=== PATIENT | female | born 1945 | race Caucasian/White ===

== ENCOUNTER 2021-05-10 16:27 | Inpatient (IN) | payer OTHER ==
[~2021-05-10] VITALS: Ht 149.9 cm; Wt 71.9 kg
--- NOTE | 2021-05-11 01:23 | NUR ---
05/10/211999 PATIENT ARRIVED TO UNIT VIA STRETCHER WITH ER STAFF AT BEDSIDE. PATIENT WAS ABLE TO AMBULATE UNDER HER OWN POWER TO BED IN ROOM 219-A. PT VITAL SIGNS UPON ADMISSIN WERE BP 128/76 HR 81 RESP 19 96%RA AND TEMP 97.8. PATIENT PRESENTS WITH ANXIETY AND MILD AGITATION. SHE IS HYPERVERBAL AND IS HAVING DIFFICULTY CONCENTRATING ON TASK AT HAND. STATES THAT SHE HAS BEEN WAITING TO GET TO HER ROOM SINCE FRIDAY. PATIENT IS ORIENTED TO PERSON, AND TIME. SHE STATES THAT SHE KNOWS SHE IS IN A HOSPITAL BUT DOES NOT KNOW THE NAME AT THIS TIME. DURING SKIN ASSESSMENT NOTED PATIENT HAS VERY MILD REDNESS IN THE ABDOMINAL FOLDS AND UNDER THE BREAST TISSUE. APPEARS TO BE HEALING AND PATIENT STATES THAT SHE HAS BEEN TAKING TOPICAL MEDICATION FOR IT. PATIENT DOES HAVE SOME MILD DEFORMITY OF THE TOES ON HER FEET WELL SOME DRY AREAS WITH WHAT LOOKS TO BE SMALL BUNIONS ON BILATERAL FEET. NOTIFED PATIENTS DPOA OF ARRIVAL AND RECEIVED VERBAL CONSENT TO TREAT. CONSENT WAS OBTAINED 05/10/21 AT 23:50. RECEIVED FROM DAUGHTER AND DPOA AUGUSTIN LIRA.
[2021-05-11 08:44] LABS: CHOLESTEROL 187 mg/dL (<200); HDL CHOLESTEROL 82 mg/dL (>40); LDL CHOLESTEROL 85 mg/dL (<100); TC:HDL 2.3 Ratio (Not establshd); TRIGLYCERIDE 101 mg/dL (<150); VLDL 20 mg/dL (<40)
[2021-05-11 09:21] VITALS: BP 148/86
--- NOTE | 2021-05-11 15:51 | NUR ---
LABILE MOOD NOTED SINCE START OF SHIF-FOR INITIAL ASSESSMENT WAS SITTING IN DAYROOM WATCHING TV WITHFEMALE PEER-REFUSED AM MEDICATIONS WHEN OFFERED AND BEGAN TO YELL AT NURSING STAFF INSISTING WE WERE GIVING HER"THE WRONG MEDICINE""I HAVEN'T TAKEN THAT IN 30 YEARS"CONVERSATION IS DISORGANIZED,CIRCUMSTANTIAL MULTIPLE PARANOID STATEMENTS ABOUT BEING GIVEN THE WRONG MEDICATION AND SSUEING THE HOSPITAL. DENIES PAIN. ORIENTED X4. DEMANDING THAT VARIOUS FOOD ITEMS BE ORDERED AND BROUGHT TO HER ROOM AND A PHONE AND TV BE INSTALLED IN HER ROOM.
[2021-05-11 19:32] VITALS: BP 117/92
[2021-05-11 22:18] VITALS: BP 117/92
--- NOTE | 2021-05-12 03:31 | NUR ---
Pt is alert/oriented to person, disoriented to time/place. Gets days mixed up and believes she is at home on occasions. Pt will accept when you tell her she is in the hospital. She wanted something for sleep so I called the dr. Lisa was ordered she did not sleep after the first dose but she did not want a second dose. She is attached to her magazines and her book and dining tray. She was offered several times throughout the shift to lay down in her room but she refused opting to stay in the day room. Lungs are clear, HRR, Abd soft nt. feels she hasn't voided but the PCT informed that she has voided and she does not have s/s of bladder fullness. Pt continues to flight of ideas, she takes her medications after explanation of the medications and what they are for. Denies SI/HI/AH/VH. will continue to monitor.
[2021-05-12 07:47] VITALS: BP 117/92
[2021-05-12 09:08] VITALS: BP 137/113
--- NOTE | 2021-05-12 09:27 | NUR ---
0917 ASSUMED CARE OF PT FROM OVERNIGHT NURSE. PT SITTING IN DINING ROOM ATTEMPTING TO ORDER BREAKFAST. PT ASSESSMENT COMPLETED. PT ALERT TIMES 2. PT STATING THAT SHE NEEDS TO ORDER BREAKFAST FOR ALL THE PEOPLE ADMITTED. PT REDIRECTED BY TECH. PT AMBULATES WITHOUT ASSIST. PT LUNGS CLEAR. PT TOOK MEDS WHOLE WITHOUT ISSUE. PT ABDOMEN SOFT. PT BOWEL SOUNDS PRESENT. PT DEMANDING TO SEE THE DOCTOR AL. PT DENIES SI/HI/AH/VH. PT REFUSED TO GO TO GROUP THERAPY STATING THAT SHE IS NOT ABLE TO GET UP BECAUSE HER SHOULDERS WERE HURTING. THIS NURSE OFFERED PT PAIN MEDICATION. PT REFUSED PAIN MEDICATION AT THIS TIME. PT CONTINUES TO TALK AT RAPID PACE AND BEING NOT ABLE TO BE REDIRECTED AT TIMES. WILL CONT TO MONITOR PT FOR BEHAVIORS AND SAFETY.
--- NOTE | 2021-05-12 12:33 | NUR ---
1224 PT IS INTRUDING IN OTHER PEERS PERSONAL SPACE. PT TOUCHING ONE OF THE PT'S FOOD AND WAS REDIRECTED BY THIS NURSE STOP TOUCHING OTHER PEOPLE'S LUNCH FOOD. PT STATED THAT SHE WAS JUST TRYING TO BE HELPFUL. PT THEN WALKED TO ANOTHER PT'S LUNCH TRAY AND STARTED TOUCHING ITEMS AGAIN. PT WAS AGAIN REDIRECTED AND PT WENT AND SAT DOWN AT A TABLE. WILL CONT TO MONITOR PT FOR BEHAVIORS.
[2021-05-12 19:47] VITALS: BP 134/89
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
--- NOTE | 2021-05-12 22:42 | NUR ---
PATIENT SITS IN THE COMMON AREA IN RECLINER. SHE IS CALM AND RELAXED BUT CONTINUES TO BE HYPERVERBAL AND HAVING A CONTINUANCE OF GETACHEW. PATIENT IS SLIGHTLY FORGETFUL BUT SHE IS ALERT AND ORIENTED TO PERSON, TIME, AND KNOWS THAT SHE IS IN THE HOSPITAL. PATIENT HAD DIFFICULTY CONCENTRATING ON ONE TASK. SHE HAS CLAIMED THAT SHE HAS NOT URINATED IN THREE DAYS ALTHOUGH SHE HAS BEEN WITNESSED URINATING. SHE STATES THAT SHE NEEDS TO HAVE 2 IV'S AND AN MRI OF HER KIDNEYS. SHE REQUESTED THIS EVENING TO HAVE THE NUMBER TO THE NON EMERGENT POLICE SHE SAYS THAT SHE HAS BEEN WORKING ON THEM ON A CASE. ONE OF THE MALE PATIENTS "WR" HAS BEEN CONFUSING HER HIS AND ATTEMPTS TO BE EFFECTIONATE WITH HER. PATIENT VSS AND SHE DENIES ANY ADDITIONAL NEEDS OTHER THAN TYLENOL FOR A MILD HEADACHE.
[2021-05-13 09:18] VITALS: BP 141/94
[2021-05-13 09:51] VITALS: BP 141/94
--- NOTE | 2021-05-13 11:49 | NUR ---
1145 RESUMMED CARE FROM OVERNIGHT SHIFT THIS AM, PATIENT IN DAY ROOM VERY HYPERVERBAL. PATIENT WAS GOING AROUND TAKEN OTHER PATIENTS ORDERS FOR LUNCH; I TOLD PATIENT SHE CAN NOT ORDER THE SAME MENU FOR OTHER PATIENTS. I TOLD PATIENT TO FOCUS ON HER TREATMENT. PATIENT IS VERY MANIC AT TIMES DEMANDING THINGS AND TRYING TO TELL STAFF HOW TO DO THEIR JOB. PATIENT ORIENTED TIMES 4 DENIES SI/HI/AH/VH AT PRESENT. PATIENT DENIES SI/HI/AH/VH AT PRESENT PATIENTS ABDOMEN SOFT BOWEL SOUNDS PRESENT. PATIENTS LUNGS CLEAR I GAVE PATIENT A SHOWER THIS AM. PATIENT VERY FIXATED ON GETTING SURGERY AND STATES SHE FEELS THE DOCTORS ARE NOT MEDICATING HER PROPERLY. PATIENT TRIES VERY HARD TO DEFEND SOME OF THE PATIENTS AND FEELS SHE NEEDS TO HELP THEM. WHEN REDIRECTING PATIENT SHE LIKES TO ARGUE AND NOT LISTEN TO WHY WE HAVE RULES. WILL CONTINUE TO MONITOR PATIENT FOR SSAFETY AND BEHAVIORS.
--- NOTE | 2021-05-13 16:53 | NUR ---
SW met with pt. who had been verbally aggressive towards staff. Pt. was upset that she had been given a shot, stating she is not supposed to receive any. Pt. wants to get an MRI and expressed that if she didn't get one, she would . Pt. wants to meet with this SW tomorrow for 15 minutes. SW explained that there is a different SW tomorrow. The SW talked to the importance of being kind to the staff and other pts on the unit. The pt. eventually told this SW that she could see herself liking the SW.
[2021-05-13 19:30] VITALS: BP 103/43
[2021-05-13 20:15] VITALS: BP 138/88
--- NOTE | 2021-05-14 03:09 | NUR ---
05-13-21 CARE TRANSFERRED 1899 OBSERVED PT SITTING AT TABLE WITH OTHERS SOCIAL INTERACTIVE. LATER PT AAOX2, VSS, RR EVEN AND NONLABORED ON RA, PT DENIES SI/HI AND PAIN. PT PRESENTS HYPERVERBAL AND INTRUSIVE WITH OTHERS, CAUSING IRRITATION WITH OTHER PEERS, PT HAS HAD MOMENTS OF GETACHEW. LATER PT REPORTED HAVING PAIN IN HER SHOULDERS AND SCORED 6 ON 0-10 SCALE. DURING REASSESSMENT OF PAIN PT RESTING IN RECLINER IN DAY ROOM WITH EYES CLOSED. PT WILL CONTINUE TO BE MONITOR PER [facility].
--- NOTE | 2021-05-14 08:34 | NUR ---
Assessed d/t new admit to [facility]. Pt admit d/t manic episode. Hx bipolar, anxiety, delusions and paranoia. No hx weight loss noted and good intakes 100% on regular diet since admit. Meds include statin, ASA, MVI, levothyroxine, seroquel. BMI 33, obese class I. Labs reviewed. D/t good dietary intakes, place at low nutrition risk at this time.
[2021-05-14 09:40] VITALS: BP 149/122
--- NOTE | 2021-05-14 10:40 | NUR ---
1040 assumed care from overnight nurse. pt sitting in dining room at beginning of shift. pt hyperverbal and needing to be redirected multiple times. pt invading personal space of a few of her peers. pt lungs clear. pt denies current pain, stated that she has had chronic pain in her shoulders during her stay. pt refused pain medications at this time. pt abdomen soft. pt bowel sounds present. pt denies SI/HI/AH/VH. pt stated that she is going to discharge today, no orders on chart for discharge at this time. pt started on new medication of Tamsulsin. pt educated on some side effects, verbalized understanding. will cont to monitor pt for behaviors and safety.
--- NOTE | 2021-05-14 11:59 | NUR ---
MAUREEN and Dr. Garcia completed a family meeting via phone with April. Dr. Garcia explained pt is still manic; he will try to get her jules down so he can ask if she wants to assign a solid healthcare dpoa. At this time he cannot say for certain if pt is suffering from a manic episode or if she now has a dementia. He did tell April that he believes she will need to stay in the hospital for the rest of the week. April said she went to the pt's apartment and discovered she has not been taking her meds for a long time; at least several weeks. SW team will continue to follow pt during her stay on this unit.
--- NOTE | 2021-05-14 15:10 | NUR ---
1430 pt sitting in dining room. pt refused to take oral [id number] 175 mg. pt begin yelling and getting loud. pt asked again if she would take her medication by mouth, pt refused. pt stated that she does not take this much medication at home. this nurse confirmed that pt would not take medication and another nurse and social science analyst intervened for assistance. pt started to punch at this nurse, the decision was then to given the IM Zyprexa 5 mg. [facility] contacted for assistance with IM. pt became even more upset and was asked to go to her room to deescalate. pt was escorted to her room and IM was given. pt is currently lying down in her room with lights out for comfort. will cont to monitor pt for behaviors and safety.
[2021-05-14 19:00] VITALS: BP 153/91
--- NOTE | 2021-05-15 08:15 | NUR ---
At 0800 pt was heard in dining room giving orders to staff. SAP BASIS ADMINISTRATOR approached pt and requested that she lower her voice and communicate her needs in a respectful manner. Pt immediately escalated further, using profanity, name calling, and threatening staff; "I've got my head of transport logistics coming at 11 o'clock and I'm taking names of all of you pigs!" "Get me some damn coffee, slaves!" Of note, pt had urinated in dayroom earlier this morning per nursing staff. When pt's rico chair was moved to relocate her away from milieu, a large amount of urine tracked the floor. When pt was asked why she has not ambulated to the bathroom as she is capable of doing so, she smiled and stated, "you all can clean it up!" Rico chair was moved to back of dayroom and urine was cleaned off of the floor. Pt has not gone to her room to change and is presently wearing soiled gown without any regard to hygiene.
[2021-05-15 09:53] VITALS: BP 132/73
--- NOTE | 2021-05-15 12:38 | NUR ---
Alert and orientated X4. Initially refused assessment and then hit BRUSH HAND when she was trying to redirect pt out of refrigerator. Delusional, stating that that her psychiatrist and banking attorney will pick her up at 1100 and that she is leaving at that time. Very demanding and fussy, kicking and attempting to hit. 15 mg Geodon given IM this AM for agitation and combativeness. Denies SI/HI. Breath sounds clear. Reg HR auscultated. Color pink with brisk capillary refill and palpable peripheral pulses. Incontinent of urine x 2 this AM--appears behavioral. Active bowel sounds over large, rounded abdomen. Multiple lesions over body of differing sizes and colors from doss to dark brown. Circular 1-2 cm in diameter. Ambulates with regular, steady gait. Consented to assessment during shower. Currently sitting in room without s/o distress.
[2021-05-15 19:37] VITALS: BP 88/45
[2021-05-15 20:20] VITALS: BP 168/74
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
[2021-05-16 08:49] VITALS: BP 175/89
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
[2021-05-16 19:13] VITALS: BP 128/78
[2021-05-16 19:15] VITALS: BP 128/78
--- NOTE | 2021-05-16 21:56 | NUR ---
Assumed care on 05/16/21 @ 1900, Impulsive, difficult to redirect and bossy. Seroquel crushed in pudding d/t patient cheeking and spitting out seroquel for day nurse. Hyperverbal and manic with flight of ideas. Accepted nystatin cream on waist fold. Reports BM today (05/16). Will continue to monitor for safety and comfort as per unit protocol.
[2021-05-17 08:00] VITALS: BP 149/100
--- NOTE | 2021-05-17 10:05 | NUR ---
Hyperverbal. Alert and orientated X4. Noncompliant with meds. Took 100 mg quetiapine and threw rest of meds in bucket. 10 mg Olanzapine given IM per order. Attempts to kick when not happy with whatever is requested of her. Very delusional, using profanity and calling RN "pig", "useless" and questioning her abilities. Did attend groups this AM. Breath sounds clear. Reg HR auscultated. Color pink with brisk capillary refill and palpable peripheral pulses. Urinated large amt per toilet but then states she has not urinated in 3 days. Active bowel sounds over soft, rounded abdomen. States she had BM 2 days ago. Multiple circular moles over body. Currently demanding shower/bath at front end java developer.
--- NOTE | 2021-05-17 13:38 | NUR ---
RT Progress Note- Elizabeth has had difficulty maintaining consistent participation in recreation therapy groups throughout the first week of her admission, d/t manic behaviors. Elizabeth often makes demands of staff and other patients, hyperfocuses on tasks that do not pertain to group such as showering or obtaining an MRI, and is interuptive to other patient's contributions to group. She does not respond to redirection well, but it is noted that if she is spoken to in a low voice, with clear and precise answers she is more receptive. Elizabeth does enjoy music and has appeared calmer during these groups. WHOLESALE AGRONOMIST will continue to work with pt and encourage progress towards goals.
--- NOTE | 2021-05-17 22:20 | NUR ---
Assumed care on 05/17/21 @ 1900, loud and verbally abusive to staff and peers. Refused p.o. medications. After several attempts patient accepted Seroquel 225mg, however refused Depakote 750mg, calcium and Lipitor. Daughter had offered to speak to her mom and encourage the taking of medication, which we tried, but was not productive as the patient became verbally and emotionally abusive with her daughter. Patient repeats multiple times that she cannot "pee" however urinates freely in large quantities in both the bedroom and the bathroom.
[2021-05-18 09:14] VITALS: BP 99/59
--- NOTE | 2021-05-18 14:04 | NUR ---
Assumed pt care at 0700. Pt in her room awake. Alert and oriented x4. Assessments completed, vss. Denies si/hi, no c/o pain at this time. manic, hyperverbal, rude and intrusive to staffs and other pts. argues and refuses meds. Took meds whole, no difficulty, noted. Ambulates with a steady gait. pt wanders unit hallways. TOilets self, makes needs known to staff. Pt was seen shoving pencil down her throat. Pt was redirected, pencil was taking away from pt. Pt was agitated and intrusive towards staff and other pt. PT WAS redirected. Enrollment Services Dean assisted pt back to her room to relax. At this time pt is in the day room. WILL continue to monitor.
[2021-05-18 19:36] VITALS: BP 126/71
--- NOTE | 2021-05-18 21:05 | NUR ---
Assumed patient care at approx 1900. Patient hyperverbal, tangential, delusional. Makes many untrue comments such as "I slept all night from there to there", when patient did not sleep lastnight until just before day shift staff came on the unit. Patient refusing physical assessment and constantly changes the subject when being asked assessment questions. Patient intrusive with other patients. When a new peer came on the unit and was on the phone with his , patient began trying to talk to the patient's over the phone. Patient also threatened to "push the red emergency button if you don't check my blood pressure", though patient was asked multiple times to have a seat in the day room in order to have her blood pressure taken. She made threats concerning pushing the "red button" when any staff would attempt to redirect her in any way. Patient very resistant to taking medications and had to be watched carefully to ensure she was taking the meds. She did eventually take medications. Patient given PRN cyclobenzaprine due to bilateral shoulder muscle aches. Patient currently lying in bed in room.
[2021-05-19 09:20] VITALS: BP 144/86
--- NOTE | 2021-05-19 13:06 | NUR ---
Assumed pt care at 0700. Pt was in day room hyperverbal. ALERT AND ORIENTED X4. Assessments completed, vss. Denies si/hi, c/o pain tylenol administered as ordered. Pt is uncooperative, aggressive and combative with care. PT was manic. Insulting other pts and staff. Took meds whole, no difficulty noted. Ambulates with a steady gait. Pt was disrupting 9am groups. all effort to redirect pt was unsuccessful. Security was called. 0909 Haldol PRN 5mg IM was administered to pt for aggresive behaviors. Pt was assisted to her room to relax, pt refused to stay in her room. AT this time pt is in HER room AWAKE. WILL CONTINUE TO MONITOR.
[2021-05-19 19:50] VITALS: BP 153/85
[2021-05-19 20:10] VITALS: BP 153/85
--- NOTE | 2021-05-19 23:58 | NUR ---
[facility] AT 1900. SHE IS ALAERT AND ORIENTED. LUNGS ARE CLEAR, BS ACTIVE X4 QUADS. SHE DENIES PAINS AND ABLE TO VERBALIZE HER NEEDS. SHE TOOK HER MEDS WHOLE AND AND DENIES SI/ AVH/ HI. SHE IS UPSET WITH THE NURSE FOR KEEPING HER BOOK. ABD IS SOFT AND NONE TENDER. SHE IS CONTINIET OF BOWEL AND BLADDER. BED IS LOW, LOCKED AND ALARMED. SHE HAS A NONE SKID SOCKS ON. MONITOR AND CONTINUE CARE
[2021-05-20 09:05] VITALS: BP 114/97
[2021-05-20 09:56] VITALS: BP 114/97
[2021-05-20 10:14] VITALS: BP 114/97
--- NOTE | 2021-05-20 11:52 | NUR ---
1150 RESUMMED CARE FROM OVERNIGHT SHIFT THIS AM, PATIENT IN DAY ROOM YELLING ABOUT HER BREAKFAST. PATIENT TOOK SOME OF HER MEDICATION BUT REFUSED THE HALDOL 5 MG PO. I GAVE PATIENT IM BACKUP PF HALDOL 5 MG PATIENT ALERT ORIENTED TIMES 4. PATIENT HAS BEEN DISRUPTED MOST OF THE MORNING SHE WAS GIVEN GEODON 20 MG IM FOR AGGRESSIVE BEHAVIORS PATIENT KICKED NURSE AND SIEVE GRADER TENDER IN THE LEG. PATIENT IS VERY MANIC AND HYPERVERBAL PATIENTS LUNGS CLEAR PATIENTS ABDOMEN SOFT BOWEL SOUNDS PRESENT. WILL CONTINUE TO MONITOR PATIENT FOR SAFETY AND BEHAVIORS.
[2021-05-20 20:48] VITALS: BP 160/71
[2021-05-20 20:52] VITALS: BP 119/98
--- NOTE | 2021-05-20 21:02 | NUR ---
Resumed patient care at 1900. Patient awake and resistant with initial vitals. This mortgage or loan underwriter took vitals prior to medication pass. Patient sedated at that time. Vitals at 160/71 bp, 113rr, initially would not read spO2 as patient's fingers were cool, rr 16, finally sp02 read 78%. Sat HOB up and 2L nasal canula, sats came up to 92%, bp 119/98. Patient now at 95% on room air, able to state her name and that her "breathing was low", disoriented to place and date. Speaking nonsense. Holding HS meds. Notified hospitalist BRITNEY Knott, who said to check vitals again in 2 hours.
[2021-05-20 23:05] VITALS: BP 124/83
[2021-05-21 09:33] VITALS: BP 147/82
--- NOTE | 2021-05-21 11:06 | NUR ---
Followup: remains on [facility] unit, eating 50-100% of regular diet. Wts are stable. Low nutrition risk
--- NOTE | 2021-05-21 11:51 | NUR ---
MAUREEN and Dr. Pond participated in a meeting via phone with Yamilet. Medications and Pt's behaviors were discussed. It recommended the PT was in need of a higher level of care. Pt is currently in an [place] but its recommended that Pt move into an assisted living with memory care. Pt sees Dr. Huber for outpt psychiatry. Family meet set for 05/25/2021 @ 5132
--- NOTE | 2021-05-21 16:48 | NUR ---
Assumed pt care at 0700. pt was in the room awake. ALERT AND ORIENTED X4. Assessments completed, vss. Denies si/hi, C/O PAIN. tylenol administered as ordered. Took meds whole, no difficulty noted. Ambulates with a steady gait. No sign of acute distress noted upon assessments. Pt was irritable, combative with staff. pt was redirected and assisted back to her room. Pt refused shower and insisted she would want a shower at 2000 tonight. Pt stuffed her bathroom with paper towel and bowels M. Pt NOTIFIED staff after stuffING her bathroom. Bathroom was cleaned up. Pt makes needs known to staff. At this time pt is in the day room screaming. Will continue to monitor.
--- NOTE | 2021-05-21 18:54 | NUR ---
LOUD HYPERVERBAL-WALKED BEHIND NURSES STATION AND ATTEMPTED TO GRAB SEVERAL ITEMS OFF THE DESK INSISTING THEY WERE HERS -ARGUMENTATIVE AND DELUSIONAL STATING SHE IS THE AIR ROUTE CONTROLLER OF "ALL OF THIS"-RAPID,LOUD SPEECH,APPEARS UNABLE TO PROCESS VERBAL INSTRUCTIONS PROVIDED -CIRCUMSTANTIAL. THREATNING TO JUDAH EVERYONE AND TOLD FLAG DECORATOR SHE WAS "GOING TO BE WAITING FOR YOU" AND "GET YOU WHEN YOU DON'T EXPECT IT" GIVEN OPTION TO GO TO ROOM OR TAKE PO MEDICATIONS TO MANAGE ABOVE NOTED SYMPTOMS, REFUSES TO COMPLY AND WENT TO DAYROOM IN FRONT OF PEERS AND BEGAN TO SHOUT "WE NEED TO UNITE AND BAND TOGETHER AND OVERTHROW THESE DICTATORS" INTRUSIVE AND INSULTING WITH FEMALE PEER WHO ATEMPTED TO REDIRECT HER STATING "OH SHUT THE HELL UP YOUR JUST A UGLY OLD WOMAN AND I BET YOU WILL SOON" SECURITY CONTACTED AND HALDOL 5 MG GIVEN IM IN LEFT DELTOID. SECURITY REMAINED IN ROOM X 30 MINUTES PT RANTED AT THEM AND STATES "I WILL PUT ON A SHOW FOR YOU IF YOU SIT AND TALK WITH ME 1;1-VERY HYPERSEXUAL-DR SALMERON CONTACTED AT 1745 AND ORDER RECEIVED FOR SECLUSION X 30 MINUTES-POUNDING ON DOOR TO SECLUSION REFUSING TO SIT ON MATTRESS. DOOR UNLOCKED AT 1815 PER ORDER-PT PROCEDED TO URINATE ON FLOOR OF SECLUSION BEFORE COMING OUT AND STATING "I PEED ON THE FLOOR SO YOU NEED TO CLEAN IT UP '
[2021-05-21 20:17] VITALS: BP 136/88
--- NOTE | 2021-05-22 04:36 | NUR ---
PATIENT HAS POOR INSIGHT. SHE CONTINUES TO BE HYPERVERBAL AND HAS DIFFICULTY LISTENING TO INSTRUCTIONS. SHE CONTINUES TO STATE THAT SHE HAS NOT SEEN A DR AND DOES NOT HAVE A MUD ANALYSIS WELL LOGGING OPERATOR. PATIENT IS IRRITABLE AND REFUSING MEDICATIONS. WHEN SHE DOES NOT GET WHAT SHE WANTS SHE URINATES IN THE FLOOR. SHE HAS BEEN DISRESPECTFUL TO HER PEERS. SOME PEERS REFUSE TO COME IN THE COMMON ROOM WHEN SHE IS IN THERE. NOTOFIED THE PHYSICIAN FOR AGITATION AND IRRITABILITY EXHIBITED BY PATIENT. SHE ALLOWED NURSE TO GIVE THE INJECTION IN HER R ARM. PATIENT REQUESTS TO SLEEP IN THE ACTIVITY ROOM SHE STATES THAT HER BED IS NOT COMFORTABLE NOW.
[2021-05-22 09:31] VITALS: BP 132/81
--- NOTE | 2021-05-22 16:28 | NUR ---
0700 assumed pt care. Pt was in her room awake. Alert and oriented x4. IRRITABLE,combative, aggressive with care. Assessments completed, vss. Denies si/hi. Denies pain at this time. Took meds whole, no difficulty noted, Ambulates with a steady gait. Pt requires extra encouragement to take her meds. Pt refused AM meds. Pt was agitated and was disrupting groups, and other pt. PRN 7.5mg Haldol was administered. Pt continued to be aggressive towards staffs and other. pt constantly takes off her pants and comes out of her room naked. Refusing care and redirection. Pt stuffed paper towels in her bathroom. AT this time pt is in the day room watching TV. will continue to monitor.
[2021-05-22 19:19] VITALS: BP 125/67
--- NOTE | 2021-05-22 19:49 | NUR ---
Assumed care on 05/22/21 @ 1900, in room taking her clothes off. Cooperated with assessment, HRRR, Lungs CTA ABD N takes self to toilet, however often urinates on the floor, which she confided to another patient she does on purpose so the staff will have to clean it up. Redirected into room and asked to redress herself. Will continue to monitor q12 minutes for patient safety and comfort.
[2021-05-22 19:50] VITALS: BP 131/56
[2021-05-22 20:45] VITALS: BP 146/94
[2021-05-22 21:45] VITALS: BP 131/56
--- NOTE | 2021-05-22 22:37 | NUR ---
At 2034 patient was sitting on floor by bathroom. She was sitting on her bottom. surgery manager had left patient in her bed with alarm on about 5 minutes earlier and brought new supplies to her bathroom. Patient states she fell down on bottom. She is alert x3 and states she did not hit head. Assessment and vitals done. She has no new injuries or markings on body. She has chronic shoulder pain and states she has no new pain. Neuro checks wnl. Strong physical sciences instructor with hands bilaterally. Pupils 3mm equal and reactive to light. Denies headache. No facial drooping. ROM wnl for patient. She is able to stand and walk and raise arms up to middle level as before. She does show old bruising on bilateral upper arms that are purple/yellow in color. Patient was cleaned up and placed in bed in comfortable position. She was given ice water to drink and sat it at bedside. Patient slept and awoke an hour later and was helped to the [facility] where she did void. She continues to be argumentative and fussing about she does not need to be here and the doctor should of left her meds alone. She states she was fine before she came in. Bed is in low position. Bed alarm is on. Siderails x3 up for safety. Daughter April was notified of noninjury fall. Dr Hansen also notified of noninjury fall. No new orders. Criminal Justice Social Worker notified also. Continuing to monitor.
--- NOTE | 2021-05-22 23:19 | NUR ---
Went to try and give patient hs meds after her nurse, Ketan didn't have any luck. Patient was argumentative and refused meds after much trying. told her that she would be getting an injection of haldol if she did not take the pills. She states she's used to getting shots at night. Haldol 7.5mg im was given in patients left deltoid. No manual hold was needed. Patient requesting seroquel. States doctor won't give it to her. She states haldol does not work for her. Pt left resting in bed with bed in low position and bed alarm on. bed rails up times 3.
[2021-05-23 09:27] VITALS: BP 116/52
--- NOTE | 2021-05-23 10:51 | NUR ---
Spoke to daughter along with Dr. Garcia. Discussed the possibility of medication changes with her mother and daughter was in agreement. is going to change meds to attempt to soften her erratic and frightening (to other patients) behavior. Daughter is activley looking at placement - has reached out to both [facility] and [facility]. Understands that until behavioral improves it is best not to send any information from her current inpatient stay. Hopefully with med change we will begin to see some inprovement. Daughter had no further questions.
--- NOTE | 2021-05-23 12:37 | EKG ---
[address] [address] ELECTROCARDIOGRAM REPORT Name: PASCUAL COTE Room #: 519A-A ADM IN M.R.#: [id number] Admission: 05/10/21 Attend Phys: Meño Garcia DO Discharge: Date of : 41 Report #: [id number] [facility] Test Date: 2021-05-23 Test Time: 11:09:35 Pat Name: PASCUAL COTE Department: Room: [facility] Gender: F Limo Driver: ANAMARIA : 1945 Requested By: Meño Garcia Order Number: [id number] MD: Bryant Altamirano Measurements Intervals [place] Rate: 86 P: 64 ID: [id number] QRS: -17 QRSD: 105 T: 43 QT: 416 QTc: 498 Interpretive Statements Sinus rhythm Borderline left axis deviation Borderline T abnormalities, anterior leads Borderline prolonged QT interval No previous ECG available for comparison Electronically Signed On 05-23-2021 12:37:06 CDT by Bryant Altamirano [email or web address] <ELECTRONICALLY SIGNED> By: Bryant Altamirano MD, [facility] 05/23/21 1237 D: 08/1108 08 Bryant Altamirano MD, FACC /EPI
--- NOTE | 2021-05-23 13:22 | NUR ---
Assumed pt care at 0700. pt was in the day room. Alert and oriented x4. Assessments completed, vss. Denies si/hi, c/o pain tylenol administered as ordered. Took meds whole, no difficulty noted. AMbulates with a steady gait. Pt is resistive, and aggressive with care. AT 1240 Threaten another pt of hitting him on his head and Killing him afterwards. Pt was redirected. Temperature Regulator took pt back to her room. DR Garcia was notified of pt behavior. Pt urinated on the floor of her room. Pt cooperated with her EKG with a lot of resistance. AT this time pt is her room. WILL CONTINUE TO MONITOR.
[2021-05-23 19:36] VITALS: BP 113/72
[2021-05-23 22:06] LABS: URINE BILIRUBIN NEGATIVE (Negative); URINE BLOOD NEGATIVE (Negative); URINE CLARITY CLEAR; URINE COLOR YELLOW; URINE GLUCOSE-RANDOM* NEGATIVE (Negative); URINE KETONES NEGATIVE (Negative); URINE NITRITE-REFLEX NEGATIVE (Negative); URINE PROTEIN (DIPSTICK) NEGATIVE (Negative); URINE SPECIFIC GRAVITY <= 1.005 (1.005-1.035); URINE UROBILINOGEN 0.2 E.U./dl (0.2-1.0)
[2021-05-23 22:16] LABS: URINE LEUKOCYTES-REFLEX 1+ (Negative)
[2021-05-23 22:17] LABS: MUCUS None Seen strn/LPF (None Seen); SQUAMOUS None Seen /LPF (0-3)
[2021-05-23 22:18] LABS: BACTERIA-REFLEX None Seen /HPF (None Seen); CASTS None Seen /LPF (None Seen); CRYSTALS None Seen /LPF (None Seen); URINE RBC 1-2 Rare /HPF (NONE SEEN); URINE WBC-REFLEX 0-5 Rare /HPF (0-5)
[2021-05-24 00:37] VITALS: BP 113/72
--- NOTE | 2021-05-24 01:18 | NUR ---
0015 RESUMMED CARE FROM DAY SHIFT THIS EVENING PATIENT AT NURSES STATION TALKING TO STAFF. PATIENT ALERT ORIENTED TIMES 3 PATIENT IS HYPERVERBAL AND MANIC. PATIENT CONSTANTLY STATING SHE NEEDS A URINE TEST BECAUSES SHE URINATES A LOT. PATIENT DRINKS A LOT OF WATER DR AGOSTO ORDERED UA ON PATIENT. PATIENT DENIES SI/HI/AH/VH AT PRESENT. PATIENTS ABDOMEN SOFT BOWEL SOUNDS PRESENT PATIENTS LUNGS CLEAR. PATIENT VERY INTRUSIVE AT NURSES STATION TRYING TO READ PAPERS ON DESK. THIS EVENING PATIENT NOT FOLLOWING DIRECTIONS TRYING TO HIT STAFF WHEN SHE CANNOT HAVE HER WAY. PATIENT GOT THORAZINE 37.5 MG IM TO HELP PATIENT SETTLE DOWN. WILL CONTINUE TO MONITOR PATIENT FOR SAFETY AND BEHAVIORS.
[2021-05-24 09:22] VITALS: BP 129/87
--- NOTE | 2021-05-24 13:19 | NUR ---
Care assumed of patient at 0715: Patient alert and oriented x3, disoriented to situation. Hyperverbal, intrusive and irritable at times. No aggressive behaviors observed thus far this shift. Patient had 2 episodes of pouring water on her bed and urinating on the floor. However, patient has been able to use the bathroom appropriately and remain continent, which is an improvement. Patient received a shower this AM. Patient has periods of becoming obsessive regarding one topic and needs re-direction. Appears easier to re-direct since starting new medication yesterday. Patient tried to spit medication out this AM and required reminders on needing to take medication. Patient was then compliant. Mouth checked after taking medication to ensure it was swallowed. Denies SI/HI/AH/VH. No delusional or paranoia behaviors observed.
--- NOTE | 2021-05-24 14:21 | NUR ---
RT Progress Note- Elizabeth has shown very variable participation in recreation therapy groups throughout this week review period. Elizabeth continues to be hyperverbal and disruptive in the milieu. During groups she is intrusive and interrupts other patients and staff. This has caused her to be escorted out of group as it is very frustrating to other patients. 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 RT team will continue to engage Elizabeth in the milieu and recreation therapy groups while working towards meeting her goals of impulse control.
[2021-05-24 19:42] VITALS: BP 136/65
--- NOTE | 2021-05-25 06:25 | NUR ---
Assumed pt's care at 1600. ALert and oriented. Pt was initially cooperative with care. Took meds as ordered. Had several episodes of bladder incontinence. Voidning on bed multiple times. Pt was agitated and aggressive with nursing which required pt to get a onetime dose of Haldol IM. Pt finally was able to get some sleep. But went back and forth room and dayroom. Nursing to continue to monitor.
[2021-05-25 09:09] VITALS: BP 137/79
[2021-05-25 11:46] VITALS: BP 137/79
--- NOTE | 2021-05-25 12:37 | NUR ---
Telephonic family meeting with Yamilet (patient's daughter). Dr. Garcia has completed [place] form Psychiatric Examination and Evaluation and this residential mortgage underwriter has sent it on to daughter's attorney recruiter - [employer] to proceed with potential guardianship. Daughter is considering both [facility] and [facility] as possible placement for patient. Dr. Garcia reviewed both medications and behaviors with daughter. Daughter voices understanding of behaviors involving innapropriate elimination and the refusal to wear underwear. Daughter agrees that we will hold off sending any referral packets until mid week in hopes that behavior changes. Patient still focused on needing a MRI - this request will not be honored.
--- NOTE | 2021-05-25 12:53 | NUR ---
1250 RESUMMED CARE FROM OVERNIGHT SHIFT THIS AM, PATIENT IN DAY ROOM SITTING TALKING WITH ANOTHER PATIENT. PATIENT ATE BREAKFAST TOOK MEDICATION WITHOUT INCIDENCE. PATIENT IS ALERT ORIENTED TIMES 3 PATIENT DENIES SI/HI/AH/VH AT PRESENT. PATIENT IS SOMETIMES ARGUMENTATIVE WITH STAFF PATIENTS ABDOMEN SOFT BOWEL SOUNDS PRESENT. PATIENTS LUNGS CLEAR PATIENT HAS TO HAVE CONSTANT REDIRECTION SHE DOES NOT LIKE TO KEEP A BRIEF ON. WILL CONTINUE TO MONITOR PATIENT FOR SAFETY AND BEHAVIORS.
[2021-05-25 20:16] VITALS: BP 106/91
--- NOTE | 2021-05-26 00:33 | NUR ---
PATIENT INITIALLY RESTING IN HER ROOM DURING SHIFT CHANGE. PATIENT IS AAOX4. WHEN COMING OUT OF HER ROOM PATIENT CONTINUES TO STATE THAT SHE IS HAVING ISSUES WITH HER BLADDER. RN NOTED RECENT UA AND CULTURE WHICH SHOWS NO INFECTION. PATIENT WAS HESITANT TO TAKE MEDICATION. EXHIBITS FLIGHT OF IDEAS AND HAS POOR JUDGEMENT. SHE REFUSES TO KEEP HER NON SKID SOCKS ON. PATIENT COMPLAINS OF PAIN IN HER L SHOULDER. PATIENT IS EASILY IRRITABLE AND IMPULSIVE. WHEN STAFF DIRECTED HER AWAY FROM THE WATER COOLER SHE DUMPED THE WATER ON ONE OF THE TABLES. PATIENT WAS WALKED TOWARDS HER ROOM AND GIVEN PRN MEDICATION. NO S/S OF DISTRENN NOTED. WILL CONTINUE TO MONITOR PATIENT FOR SAFETY.
[2021-05-26 10:37] VITALS: BP 106/91
[2021-05-26 12:24] VITALS: BP 113/62
--- NOTE | 2021-05-26 15:51 | NUR ---
Patient care resumed 0700, patient still in bed sleeping, got up for breakfast, she is alert and oriented x4, she was calm and cooperative during assessment, lung clear, active bowel sound, vss, took her medication whole with much hesitaion, ambulate with a steady gait, went to bed later and urinated everywhere, varbally aggressive, refused her 1500 medication, denies si/hi will continue to monitor for safety
--- NOTE | 2021-05-26 17:33 | NUR ---
Assumed patient care 05/26/21 at 0700, in room sleeping, got up for breakfast, assessment completed bowel soft, round and active, lungs clear, she is alert and oriented x4, took her medication whole but questioned every one of the medication, she ambulate with a steady gait, patient attended groups went back to bed after group, got up and urinated everywhere in her room, refused her 1500 medication, when asked why? she became very augmentative. Patient would not verbalize for safety when asked for si/hi but will continue to monitor patient for safety
[2021-05-26 19:30] VITALS: BP 118/67
--- NOTE | 2021-05-27 05:16 | NUR ---
Assumed pt's care beginning of this pm shift. Alert and oriented. Can be impulsive and demanding. Pt took meds as ordered. Tylenol given for shoulder pain this shift. Pt sleeping in room. Will continue to monitor.
[2021-05-27 09:20] VITALS: BP 93/33
[2021-05-27 11:05] VITALS: BP 123/70
--- NOTE | 2021-05-27 13:39 | NUR ---
3419 RESUMMED CARE FROM OVERNIGHT SHIFT THIS AM, PATIENT IN DAY ROOM TALKING WITH ANOTHER PATIENT. PATIENT ALERT ORIENTED TIMES 3 PATIENT MUCH CALMER BUT IS STILL AT TIMES INTRUSIVE. PATIENT DENIES SI/HI/AH/VH AT PRESENT PATIENTS ABDOMEN SOFT SOFT BOWEL SOUNDS PRESENT. PATIENTS LUNGS CLEAR PATIENT PARTICIPATED IN GROUPS. PATIENT DOES COME UP TO THE NURSES STATION TO ASK WHY DR TURNER ISN'T DOING ANYTHING ABOUT HER URINE PROBLEM. I TOLD PATIENT THAT SHE HAD A UA DONE A FEW DAYS AGO AND IT WAS NORMAL. PATIENT IS SOMATIC ABOUT DIFFERENT THINGS THAT SHE FINDS WRONG WITH HER. WILL CONTINUE TO MONITOR PATIENT FOR SAFETY AND BEHAVIORS.
[2021-05-27 20:00] VITALS: BP 132/66
--- NOTE | 2021-05-28 02:21 | NUR ---
Assumed pt's care this pm shift. Pt alert and oriented x4. Confused. Pt was cooperative with care this shift. Tylenol given for shoulder pain. Took meds without issues. Pt was a little less demanding than usual. Pt requested nursing to assist her in writing down her plans for in the morning which included meals and phone calls and bath. Pt is currently on phone restriction. Pt sleeping in her room. Nursing to continue to monitor.
[2021-05-28 09:31] VITALS: BP 115/64
--- NOTE | 2021-05-28 09:33 | NUR ---
Followup: eating 60-100% meals and wt is stable at 163 lb. Low nutrition risk
[2021-05-28 11:53] VITALS: BP 115/64
--- NOTE | 2021-05-28 12:51 | NUR ---
1251 RESUMMED CARE FROM OVERNIGHT SHIFT THIS AM, PATIENT IN DAY ROOM TALKING WITH ANOTHER PATIENT. PATIENT ATE BREAKFAST TOOK MEDICATION WITH ME TALKING; WITH PATIENT TELLING HER IF SHE DOES NOT TAKE ORAL IM BACKUP. PATIENT ALERT TIMES 3 PATIENT SOME TIMES INTRUSIVE. PATIENTS ABDOMEN SOFT BOWEL SOUNDS PRESENT PATIENTS LUNGS CLEAR. PATIENT DENIES SI/HI/AH/VH AT PRESENT PATIENT MORE REDIRECTABLE. WILL CONTINUE TO MONITOR PATIENT FOR SAFETY AND BEHAVIORS.
[2021-05-28 20:20] VITALS: BP 111/55
[2021-05-28 20:21] VITALS: BP 111/55
--- NOTE | 2021-05-29 05:25 | NUR ---
PATIENT UP IN DINING ROOM THIS EVENING. SHE HAS BEEN A LITTLE MANIC AND DEMANDING BUT MORE EASILY REDIRECTABLE. PATIENT TOOK MEDS WHOLE AND WITHOUT INCIDENT. SHE DENIES SI/HI/AVH. SHE DENIES PAIN. SHE TOILETS SELF WITH STAND BY ASSIST. PATIENT HAS BEEN RESTING IN BED WITH EYES CLOSED MOST OF NIGHT. PATIENT A/0X3-4. BED IN LOW POSITION AND BED ALARM IS ON. ROUTINE ROUNDS TO ASSESS SAFETY AND STATUS OF PATIENT.
[2021-05-29 07:42] VITALS: BP 121/54
--- NOTE | 2021-05-29 12:56 | NUR ---
Rubi at [facility] requested last few days of patient notes as daughter requesting placement for patient at their [place]. Sent fax per request.
--- NOTE | 2021-05-29 13:06 | NUR ---
Care of patient resummed 0700. she was pleaseant and calm in the AM, she ate breakfast, she is alert and oriented x4, she took her medication without complain, her bowel is active, breath sound clear, regular HR ausculted, color pink with brisk capillary refill, no edma noted, she ambulate with a steady gait, attends groups, no behavior changes for now, she can be incontient some times, patient is on phone restriction due to inappropriate use of the phone. she denies SI/HI, will continue to monitor for safety
[2021-05-29 20:30] VITALS: BP 130/59
[2021-05-29 20:35] VITALS: BP 130/59
--- NOTE | 2021-05-30 01:10 | NUR ---
PATIENT SAT UP IN DINING ROOM THIS EVENING FOR AWHILE. SHE HAD HS SNACK AND DRANK WATER. PATIENT CONTINUES TO HAVE VOIDING EXITS OF URINE. PT IS ON FLOMAX AND COULD POSSIBLY CAUSE MORE FREQUENCY? PATIENT'S BED WAS MADE WITH CLEAN SHEETS AND PATIENT TOOK HER MEDS WHOLE WITH WATER. SHE WAS ARGUMENTATIVE AND DEMANDING AT BEDTIME BUT DID CALM BEFORE GOING TO BED. PATIENT HAS BEEN SLEEPING SINCE TAKING HER MEDS. SHE DOES SEEM LESS INTRUSIVE AND CALMER. DENIES SI/HI/AVH. DENIES PAIN. BED IN LOW POSITION AND BED ALARM IS ON. ROUTINE ROUNDS TO ASSESS SAFETY AND STATUS OF PATIENT.
[2021-05-30 09:40] VITALS: BP 139/82
--- NOTE | 2021-05-30 14:57 | NUR ---
PATIENT HAS BEEN UP, AND OUT ON THE UNIT, AMBULATE WITH SLOW SLIGHTLY UNSTEADY GAIT. PATIENT IS ALERT, FORGETFUL, HAS PERIODS OF CONFUSION. SHE IS IMPULSIVE, RESTLESS AT TIMES. PATIENT TOOK ALL HER MEDICATION WHOLE WITHOUT DIFFICULTY, SHE IS EATING MEALS, AND DRINKING FLUID WELL. PATIENT DENIES SUICIDAL/HOMICIDAL IDEATION. SHE DENIES DEPRESSION/ANXIETY, RATES USHA SHOULDER 10/10, PRN TYLENOL GIVEN, WHEN REASSESSED, PAIN DECREASED TO 4/10. PATIENT IS HYPERVERBAL, CAN BE INTRUSIVE TOWARDS PEERS. AFFECT IS LABILE, MOOD IS RESTLESS. PATIENT PARTICIPATES IN GROUP THERAPY. NO SIGN OF ACUTE DISTRESS NOTED AT THIS TIME, WILL CONTINUE TO REDIRECT, AND MONITOR FOR SAFETY.
[2021-05-30 20:01] VITALS: BP 157/91
--- NOTE | 2021-05-31 04:59 | NUR ---
PATIENT AAOX3. PATIENT PACES BACK AND FORTH FROM HER ROOM TO THE COMMON ROOM. PATIENT DID SLEEP FOR ABOUT AN HOUR AT THE BEGINNING OF THE SHIFT. PATIENT CONTINUES TO BE INTRUSIVE AND DEMANDING. SHE CONTINUES TO URINATE IN HER BED AND CHAIR. PATIENT COMPLAINS OF PAIN TO HER LEFT SHOULDER. PRN MEDS GIVIN. PT WAS COMPLIANT WITH HS MEDS. VITAL SIGNS STABLE. NO DISTRESS NOTED. WILL CONTINUE TO MONITOR.
[2021-05-31 09:35] VITALS: BP 127/72
--- NOTE | 2021-05-31 11:12 | NUR ---
RT Progress Note- Elizabeth has made great improvement towards goals throughout this review period. She has been able to participate in nearly all recreation therapy groups without overly disruptive behavior, tolerating redirection as it needs to be given. Elizabeth has especially enjoyed reminiscent groups this week and enjoys talking about them during her unstructured time as well. Recreation Therapy team will continue to encourage Elizabeth's progress.
--- NOTE | 2021-05-31 14:01 | NUR ---
Alert and orientated X4. Much calmer and more compliant this AM compared to last week. Took shower and shampooed hair with minimal assistance after she was incontinent of urine. Denies SI/HI. Breath sounds clear. Reg HR auscultated. Color pink with brisk capillary refill and palpable peripheral pulses. Urine yellow. Active bowel sounds over soft, rounded abdomen. Small stool. No erythema or excoriation beneath breasts or in inguinal/ abdominal folds. Refused nystatin. Ambulates with regular, steady gait. Slept for several hours on couch, no s/o distress. Currently visiting with animals. Concerned with discharge.
[2021-05-31 20:12] VITALS: BP 129/83
--- NOTE | 2021-06-01 01:20 | NUR ---
PATIENT WAS CALM AND COOPERATIVE TONIGHT. MUCH LESS DEMANDING AND WAS ASKING FOR THINGS SHE NEEDED OPPOSED TO JUST SAYING THEM ALOUD. SHE TOOK ALL OF HER MEDICATIONS PRESCRIBED. SHE DID HAVE ONE EPISODE OF INCONTINANCE. SHE WENT TO HER ROOM TO REST TONIGHT. SHE DOES HAVE A COUGH THAT IS NON PRODUCTIVE. SHE IS AAOX4.
[2021-06-01 09:27] VITALS: BP 113/73
--- NOTE | 2021-06-01 11:36 | NUR ---
BOOM TENDER assisted pt to use phone for approximately 15 minutes under supervision in office. She remained appropriate.
--- NOTE | 2021-06-01 15:52 | NUR ---
Alert and orientated X4. Denies SI/HI. Wants to be discharged and is concerned with discharge plan. Ambulates with regular, steady gait. States she has L hip pain late afternoon, requesting Tylenol and muscle rub. Breath sounds clear. Reg HR auscultated. Color pink with brisk capillary refill and palpable peripheral pulses Independent with voiding. Active bowel sounds over soft, rounded abdomen. Currently in day room with peers. No s/o distress.
[2021-06-01 19:34] VITALS: BP 118/59
[2021-06-01 22:59] VITALS: BP 118/59
--- NOTE | 2021-06-02 02:29 | NUR ---
06/01/21 - Pt was up intermittently in day room, making out her menu for breakfast in the morning, took her medications whole with no problems. Pt eventually went to bed and had several episodes of incontinence. Denies SI/HI/AH/VH. will continue to monitor.
[2021-06-02 09:08] VITALS: BP 124/65
--- NOTE | 2021-06-02 14:16 | NUR ---
Alert and orientated X4. Denies SI/HI. Calm, cooperative and compliant today expressing concerns about being unable to sleep at night d/t lack of bed coverings. Fussy and demanding at times yelling at the behavior of other pts. Breath sounds clear. Reg HR auscultated. Color pink with brisk capillary refill and palpable peripheral pulses. Independent with voiding, incontinent X 1 this afternoon. Active bowel sounds over soft, rounded abdomen. Ambulates with regular, steady gait. Requested tylenol X 1 this AM and then muscle rub on shoulders. Currently in room without s/o distress.
[2021-06-02 20:01] VITALS: BP 122/59
--- NOTE | 2021-06-03 03:02 | NUR ---
PATIENT RESTING IN THE COMMON AREA WATCHING TV. PT IS CALM AND COOPERATIVE TONIGHT. SHE IS STILL DEMANDING AT TIMES BUT HER THOUGH PROCESS APPEARS TO BE CLEAR. HER RAPID SPEECH HAS SEEMED TO HAVE RESOLVED OVER THE PAST FEW DAYS. SHE IS AAOX4. SHE STATES THAT SHE IS GOING TO BE DISCHARGED ON FRIDAY WHICH SEEMS TO BE SCHEDULED. SHE COMPLIED WITH HER MEDICATION. WILL CONTINUE TO MONITOR PATIENT FOR CHANGES IN STATUS.
[2021-06-03 09:56] VITALS: BP 126/71
--- NOTE | 2021-06-03 10:48 | NUR ---
MAUREEN faxed referral to [facility]. MAUREEN team will remain available while on this unit.
[2021-06-03 19:57] VITALS: BP 118/57
[2021-06-03 20:20] VITALS: BP 118/57
--- NOTE | 2021-06-04 04:05 | NUR ---
PATIENT SAT UP IN DINING ROOM THIS EVENING AND SLEPT FOR AN HOUR AND WENT BACK TO BED. SHE TOOK HER MEDS WHOLE WITH WATER. SHE STILL HAS INCONTINENCE AT TIMES AND TRIES TO CLEAN HERSELF UP BUT STAFF DOES STEP IN TO MAKE SURE SHE IS CLEAN. PATIENT HAD CHRONIC NECK AND BACK PAIN AND REQUESTED TYLENOL THIS EVENING. SHE CONTINUES TO HAVE A DRY HACKY COUGH AT TIMES BUT BELIEVE IT MAY BE FROM HER SNORING AND DRY MOUTH. IT CALMS WITH WATER. PATIENT HAS BEEN CALM AND COOPERATIVE. BED IN LOW POSITION AND BED ALARM IS ON. PATIENT REFUSES TO WEAR HER YELLOW NONSKID SOCKS. SHE STATES IT CAUSES HER TO TRIP. WE STILL WORKING TO ENCOURAGE HER TO WEAR THEM AND WE CAN ASSIST HER WITH WALKING. DENIES SI/HI/AVH. ROUTINE ROUNDS TO ASSESS SAFETY AND STATUS OF PATIENT.
--- NOTE | 2021-06-04 09:10 | NUR ---
Nutrition followup: pt continues on [facility] unit and is eating 75-100% most meals past several days. Weights stable. Planned D/C 06/05. Low nutrition risk.
[2021-06-04 10:15] VITALS: BP 90/75
[2021-06-04 10:37] VITALS: BP 90/75
--- NOTE | 2021-06-04 10:42 | NUR ---
1042 assumed care of pt from overnight nurse. pt alert and oriented times 2-3. pt ate breakfast and am medication compliant. pt attempted to refuse medication, but after discussing the importance of taking medication, pt took medications. pt ambulating throughout unit without difficulty. pt very demanding and asking to use patient telephone multiple time. pt currently in dining room interacting w peers. will cont to monitor pt for behaviors and needs.
--- NOTE | 2021-06-04 14:10 | NUR ---
MAUREEN spoke with the DON at [facility]. DON stated they are able to accept the Pt. Discharge was set for 06/05/2021 @ 1330. Pt will be transported via [facility]. Pt's daughter/DPOA, April, was notified of this discharge, via phone call.
[2021-06-04 20:10] VITALS: BP 136/66
--- NOTE | 2021-06-04 23:40 | NUR ---
PATIENT RESTING IN COMMON AREA WATCHING TV. SHE IS AAOX4. STATES THAT SHE IS HAPPY TO BE LEAVING TOMORROW BUT DOESNT THINK SHE WILL LIKE THE FACILITY. SHE CONTINUES TO BE IMPULSIVE AND DEMANDING AT TIMES BUT IS COOPERATIVE AND COMPLIANT. NO RACING THOUGHTS OBSERVED. COMPLIANT WITH MEDICATIONS AND TREATMENT. VSS. DENIES PAIN AT THIS TIME.
[2021-06-05 10:12] VITALS: BP 153/86
[2021-06-05] MEDS ORDERED: LIPITOR 20 MG T20 M1 PO (12:00)
[2021-06-05] MEDS ORDERED: BAYER CHEWABLE81 MG PO (12:01)
[2021-06-05] MEDS ORDERED: TEGRETOL XR100 MG PO (12:02)
[2021-06-05] MEDS ORDERED: CHLORPROMAZINE100 MG PO (12:02)
[2021-06-05] MEDS ORDERED: CHLORPROMAZINE25 M3 PO (12:03)
[2021-06-05] MEDS ORDERED: CHLORPROMAZINE50 M2 PO (12:04)
[2021-06-05] MEDS ORDERED: CALCIUM 600 +1 EAC1 PO (12:05)
[2021-06-05 12:06] VITALS: BP 153/86
[2021-06-05] MEDS ORDERED: SYNTHROID50 MCG PO (12:06)
[2021-06-05] MEDS ORDERED: PROTONIX40 M2 PO (12:06)
[2021-06-05] MEDS ORDERED: PRENATAL PO (12:08)
[2021-06-05] MEDS ORDERED: PT HOME MEDICATION MISCELL (12:09)
--- NOTE | 2021-06-05 12:47 | NUR ---
1247 RESUMMED CARE FROM OVERNIGHT THIS AM, PATIENT IN ROOM SITTING ON BED. PATIENT ATE BREAKFAST TOOK MEDICATION WITHOUT INCIDENCE; PATIENT ALERT ORIENTED TIMES 3. PATIENT DENIES SI/HI/AH/VH AT PRESENT PATIENTS ABDOMEN SOFT BOWEL SOUNDS PRESENT. PATIENTS LUNGS CLEAR PATIENT IS DISCHARGING TODAY TO [facility]. PATIENT IS EXCITED TO LEAVE PATIENT PARTICPATED IN GROUPS. I CALLED REPORT TO ANGELI WILL CONTINUE TO MONITOR PATIENT FOR SAFETY AND BEHAVIORS.
--- NOTE | 2021-06-06 22:29 | D ---
[facility] [place] [address] DISCHARGE SUMMARY Name: PASCUAL COTE Room #: 519A-A DIS IN M.R.#: [id number] Admission: 05/10/21 Attend Phys: Meño Garcia DO Discharge: 06/05/21 Date of : 41 Report #: [id number] THIS REPORT FOR: cc: FAM - No family physician/PCP FAM - No family physician/PCP Meño Garcia DO ~ DATE OF SERVICE: 06/05/2021 PSYCHIATRIC DISCHARGE SUMMARY ATTENDING PSYCHIATRIST: Meño Garcia DO PIPELINE TECHNICIAN: Jesus Reynoso M.D. DISCHARGE DIAGNOSES: 1. Bipolar 1 disorder, most recent episode jules with psychotic features, improved. 2. Major neurocognitive disorder, unspecified etiology. MEDICAL COMORBIDITIES: Include hypothyroidism, urinary retention, hyperlipidemia. The patient is discharging to [facility]. Psychiatric and medical care per receiving facilities. DISCHARGE DIET: Regular. ACTIVITY LEVEL: As tolerated. The patient requires 24-hour care and supervision. She does use a rolling walker to help her ambulate. LABORATORY DATA: This admission, urinalysis was clean on 05/23/2021. Chemistry, A1c 6.0. Triglycerides 101, cholesterol 187, LDL 85, HDL 82. TSH 0.861. Toxicology this admission, her most recent Tegretol level 300 b.i.d. was 11.1 and that is mcg per mL. Previously, she had been 10.8 with a lower dose. COVID-19 Benitez test, which was negative. DISCHARGE MEDICATIONS: Atorvastatin 20 mg oral at bedtime for hyperlipidemia; aspirin 81 mg oral daily for heart protection; Tegretol-XR 200 mg oral twice a day at 0900 and 2100 for mood stabilization; chlorpromazine 125 mg at 0900 and 1500 and 150 mg oral at bedtime, all for psychosis; calcium carbonate with vitamin D3 for supplementation oral tablet twice daily; Protonix 40 mg oral daily for GERD; levothyroxine 50 mcg oral daily for hypothyroidism; vitamin oral daily. REASON FOR ADMISSION: Back on 05/10/2021, a 75-year-old year old female transferred from [facility]. The patient was very manic, could not concentrate, wandering around naked, excessive spending, flight of ideas, gotten worse over the last 3-4 months, worse in the last 2 weeks. She is seeing Dr. Huber in clinic. Her daughter, [place], [place] [address] DISCHARGE SUMMARY Name: PASCUAL COTE Room #: 519A-A [facility]#: [id number] Admission: 05/10/21 Attend Phys: Meño Garcia, Discharge: 06/05/21 Date of : 41 Report #: [id number] guardianship. HOSPITAL COURSE: The patient was admitted to Geriatric Psychiatry Unit. There was a DPOA document that did not have adequate causes and replacement, so daughter, April, got emergency guardianship during the admission in [facility]. It was difficult to control her jules, I believe started her on atypical like Seroquel, olanzapine and later on we had to switch to chlorpromazine. Similarly, the patient's daughter, guardian, did not want her on Depakote, so we went to a Tegretol regimen. Slowly, things began to improve with less instances the patient saying very nasty things, being in inappropriate places, being problematic and those always subsided. During the course of the admission, we did have some difficulty finding her placement that also rebecca out the admission bed, finally I succeeded in getting her accepted at [facility]. PHYSICAL EXAMINATION: VITAL SIGNS: Temperature 35.1, pulse 103, respirations 16, BP 153/83, O2 sat 97%. MUSCULOSKELETAL: Unkempt female, appearing stated age. BMI 32. MENTAL STATUS EXAMINATION: This is a well-developed, age-appearing female. Attention, concentration limited. Speech pushed at times. Thought process: Linear and goal directed. Thought content: Focused on making phone calls and demands like that when I saw her. mood/affect, constricted, bit irritable Denied suicidal or homicidal ideation, auditory or visual type hallucinations. Memory not formally tested. Insight limited. Judgment limited. Fund of knowledge below average. Prognosis for this patient is guarded given her neurodegenerative disorder, difficult to treat jules, medical comorbidities. <ELECTRONICALLY SIGNED> By: Meño Garcia DO 06/06/212228 21 49 Meño Garcia DO /nt
== END 2021-06-05 13:45 | DRG 885 ==
LOC: SBH
PROVIDERS: ADMIT Psychiatry & Neurology Psychiatry; ATTEND Psychiatry & Neurology Psychiatry
DX: F31.2 Bipolar disorder, current episode manic severe with psychotic features (principal); F01.50 Vascular dementia, unspecified severity, without behavioral disturbance, psychotic disturbance, mood disturbance, and anxiety; E89.0 Postprocedural hypothyroidism; F41.9 Anxiety disorder, unspecified; R33.9 Retention of urine, unspecified; E78.5 Hyperlipidemia, unspecified; M19.90 Unspecified osteoarthritis, unspecified site; Z79.899 Other long term (current) drug therapy; Z79.82 Long term (current) use of aspirin; Z88.0 Allergy status to penicillin; Z88.8 Allergy status to other drugs, medicaments and biological substances; Z90.49 Acquired absence of other specified parts of digestive tract
CPT/HCPCS: 10880

== ENCOUNTER 2021-05-10 18:09 | Emergency (ER) | payer OTHER ==
[~2021-05-10] VITALS: Ht 157.5 cm; Wt 72.6 kg
[2021-05-10 19:28] VITALS: BP 116/82
== END 2021-05-10 19:30 ==
LOC: ER 18:09
DX: R45.1 Restlessness and agitation (principal); Z20.822 Contact with and (suspected) exposure to COVID-19